=== PATIENT | female | born 1955 | race Hispanic/Latino ===

== ENCOUNTER 2017-03-28 08:16 | Outpatient (CLI) | payer OTHER | END 2017-03-28 08:17 | disposition home or self-care (01) | LOC: SPVIMAG 08:16 | PROVIDERS: ATTEND Orthopaedic Surgery | DX: M17.11 Unilateral primary osteoarthritis, right knee (principal) ==

== ENCOUNTER 2017-04-23 09:10 | Outpatient (CLI) | payer OTHER ==
--- NOTE | 2017-03-28 09:01 | XRay Report ---
Right knee 3 views. Findings: There is severe narrowing of the joint space, most pronounced medially. Secondary hypertrophic changes are seen at the articular margins. There is also narrowing of the patellofemoral joint. No soft tissue abnormalities are seen. Impression: Moderate to severe osteoarthritis including patellofemoral joint involvement.
--- NOTE | 2017-04-23 09:50 | XRay Report ---
CERVICAL SPINE RADIOGRAPHS INDICATION: Cervical spondylosis. COMPARISON: None similar. FINDINGS: Attempted AP, lateral and open-mouth views of the cervical spine demonstrate grossly normal imaged dens and symmetric lateral masses. Osteopenia. Intact craniocervical articulation on the lateral view with normal prevertebral soft tissues and airway. Normal vertebral body stature, alignment and disc heights with visualization upto C7-T1 level. Mild C7-T1 degenerative changes may though be present. Clear visualized lung apices. CONCLUSION: No acute cervical spine radiographic abnormality with age-appropriate appearance, as described. Thank you for the opportunity to participate in this patient's care.
== END 2017-04-23 09:11 | disposition home or self-care (01) ==
LOC: SPVIMAG 09:10
PROVIDERS: ATTEND Physical Medicine & Rehabilitation
DX: M47.812 Spondylosis without myelopathy or radiculopathy, cervical region (principal); M85.88 Other specified disorders of bone density and structure, other site
CPT/HCPCS: 72040